=== PATIENT | female | born 1960 | race African-American/Black ===

== ENCOUNTER → 2017-06-21 | Outpatient (CLI) | payer MEDICARE, MEDICAID ==
[~2017-06-21] MED LIST: ALBU25PO2; AMBR5TAB3 PO; CALC667T2 PO; CINA90TA PO; CLON0.3T PO; LABE200T28 PO; SEVE800T8 PO; STAR120 PO; TIOT18CA3
== END | disposition home or self-care (01) ==
LOC: MAMMO 10:44
PROVIDERS: ATTEND Internal Medicine
DX: Z12.31 Encounter for screening mammogram for malignant neoplasm of breast (principal)
CPT/HCPCS: G0202